=== PATIENT | female | born 1995 | race African-American/Black ===

== ENCOUNTER 2018-10-12 10:30 | Emergency (ER) | payer OTHER ==
[2018-10-12 11:22] VITALS: BP 109/56; PULSE 80; TEMP 98.1; BMI 54.3
[2018-10-12 12:02] LABS: URINE APPEARANCE SLCLOUDY; URINE BILIRUBIN NEGATIVE (<2.0 mg/dL); URINE COLOR YELLOW; URINE GLUCOSE (UA) NEGATIVE (NEGATIVE); URINE KETONE NEGATIVE (NEGATIVE); URINE LEUK ESTERASE NEGATIVE (NEGATIVE); URINE NITRITE NEGATIVE (NEGATIVE); URINE PROTEIN NEGATIVE (NEGATIVE)
[2018-10-12 12:03] LABS: HCG,QUALITATIVE URINE Negative
[2018-10-12 12:31] LABS: EPI CELLS RARE /HPF (FEW); URINE MUCUS RARE
[2018-10-12] MEDS ORDERED: RANITIDINE HCL 150 MG TABLET (FP) PO ONE (13:03)
[2018-10-12] MEDS ORDERED: MAG HYDROX/AL HYDROX/SIMETH 30 ML UNIT-DOSE CUP PO ONE (13:03)
[2018-10-12] MEDS ORDERED: SUCRALFATE 1 GM TABLET (FP) PO ONE (13:03)
--- NOTE | 2018-10-12 13:26 | PDOC ---
History of Present Illness - General History Source: Patient - History of Present Illness Timing/Duration: reports: intermittent Abdominal Pain Onset Location: reports: epigastric <Edwin Snowden - Last Filed: 10/12/18 15:21> <Racquel Clements - Last Filed: 10/12/18 16:27> - General Chief Complaint: Pain Stated Complaint: ABD PAIN Time Seen by Provider: 10/12/18 12:45 Past History - Past Medical History Asthma: Yes COPD: No - Suicide/Smoking/Psychosocial Hx Smoking History: Never smoked <Edwin Snowden - Last Filed: 10/12/18 15:21> <Racquel Clementsmagdy - Last Filed: 10/12/18 16:27> - Past Medical History Allergies/Adverse Reactions: Allergies Allergy/AdvReac Type Severity Reaction Status Date / Time azithromycin [From Zithromax] Allergy Unknown Verified 10/12/18 11:08 amoxicillin Allergy Verified 10/12/18 11:08 Home Medications: Ambulatory Orders Acetic Acid Hc [Vosol-Hc Ear Drops -] 3 drop Q6H #1 bottle 10/03/16 Mv-Mn/Iron/Folic Acid/Herb 190 [Vitamin D3 Complete Caplet] 1 each PO DAILY Famotidine [Pepcid] 20 mg PO DAILY #14 tablet 10/12/18 Mag Hydrox/Al Hydrox/Simeth [Mylanta Suspension -] 30 ml PO Q6H #1 bottle Review of Systems - Review of Systems Constitutional: No: Chills ((1 he), Fever ABD/GI: No: Blood Streaked Bowels, Constipated, Diarrhea, Nausea, Vomiting, Tarry Stools : No: Burning, Dysuria, Flank Pain, Hematuria <Edwin Snowden - Last Filed: 10/12/18 15:21> *Physical Exam - Vital Signs Last Vital Signs Temp Pulse Resp BP Pulse Ox 98.1 F 80 18 109/56 L 97 10/12/18 11:08 10/12/18 11:08 10/12/18 11:08 10/12/18 11:08 10/12/18 11:08 - Physical Exam General Appearance: Yes: Appropriately Dressed. No: Apparent Distress HEENT: positive: Normal Voice Neck: positive: Supple Respiratory/Chest: positive: Lungs Clear, Normal Breath Sounds. negative: Respiratory Distress Cardiovascular: positive: Regular Rate, S1, S2 Gastrointestinal/Abdominal: positive: Tender (over epigastrium, NT over RUQ and mcburneys) Musculoskeletal: negative: CVA Tenderness Integumentary: positive: Dry, Warm Neurologic: positive: Fully Oriented, Alert, Normal Mood/Affect <Edwin Snowden - Last Filed: 10/12/18 15:21> - Vital Signs Last Vital Signs Temp Pulse Resp BP Pulse Ox 98.1 F 80 18 109/56 L 97 10/12/18 11:08 10/12/18 11:08 10/12/18 11:08 10/12/18 11:08 10/12/18 11:08 <Racquel Clements - Last Filed: 10/12/18 16:27> Moderate Sedation - Procedure Monitoring Vital Signs: Procedure Monitoring Vital Signs Temperature 98.1 F 10/12/18 11:08 Pulse Rate 80 10/12/18 11:08 Respiratory Rate 18 10/12/18 11:08 Blood Pressure 109/56 L 10/12/18 11:08 O2 Sat by Pulse Oximetry (%) 97 10/12/18 11:08 <Edwin Snowden - Last Filed: 10/12/18 15:21> - Procedure Monitoring Vital Signs: Procedure Monitoring Vital Signs Temperature 98.1 F 10/12/18 11:08 Pulse Rate 80 10/12/18 11:08 Respiratory Rate 18 10/12/18 11:08 Blood Pressure 109/56 L 10/12/18 11:08 O2 Sat by Pulse Oximetry (%) 97 10/12/18 11:08 <Racquel Clements - Last Filed: 10/12/18 16:27> ED Treatment Course - LABORATORY CBC & Chemistry Diagram: 10/12/18 13:51 10/12/18 13:51 - ADDITIONAL ORDERS Additional order review: Laboratory Results 10/12/18 11:44 Urine Color Yellow Urine Appearance Slcloudy Urine pH 6.0 Ur Specific [place] 1.016 Urine Protein Negative Urine Glucose (UA) Negative Urine Ketones Negative Urine Blood 2+ H Urine Nitrite Negative Urine Bilirubin Negative Urine Urobilinogen 2.0 H Ur Leukocyte Esterase Negative Urine WBC (Auto) 1 Urine RBC (Auto) <1 Ur Epithelial Cells Rare Urine Mucus Rare Urine HCG, Qual Negative <Edwin Snowden - Last Filed: 10/12/18 15:21> - LABORATORY CBC & Chemistry Diagram: 10/12/18 13:51 10/12/18 13:51 - ADDITIONAL ORDERS Additional order review: Laboratory Results 10/12/18 11:44 Urine Color Yellow Urine Appearance Slcloudy Urine pH 6.0 Ur Specific [place] 1.016 Urine Protein Negative Urine Glucose (UA) Negative Urine Ketones Negative Urine Blood 2+ H Urine Nitrite Negative Urine Bilirubin Negative Urine Urobilinogen 2.0 H Ur Leukocyte Esterase Negative Urine WBC (Auto) 1 Urine RBC (Auto) <1 Ur Epithelial Cells Rare Urine Mucus Rare Urine HCG, Qual Negative 10/12/18 13:51 RBC 4.48 MCV 82.8 MCHC 31.3 L RDW 14.8 MPV 8.7 Neutrophils % 62.5 Lymphocytes % 31.1 Monocytes % 5.5 Eosinophils % 0.6 Basophils % 0.3 - Medications Given in the ED: ED Medications Discontinued Medications Generic Name Dose Route Start Last Admin Trade Name Freq PRN Reason Stop Dose Admin Al Hydroxide/Mg Hydroxide 30 ml 10/12/18 13:03 10/12/18 13:47 Mylanta Oral Suspension - PO 10/12/18 13:04 30 ml ONCE ONE Administration Ranitidine HCl 150 mg 10/12/18 13:03 10/12/18 13:47 Zantac - PO 10/12/18 13:04 150 mg ONCE ONE Administration Sucralfate 1 gm 10/12/18 13:03 10/12/18 13:47 Carafate - PO 10/12/18 13:04 1 gm NOW ONE Administration <Racquel Clements - Last Filed: 10/12/18 16:27> Medical Decision Making - Medical Decision Making 10/12/18 13:05 22-year-old female, morbidly obese, here with abdominal pain. Patient reports upper abdominal pain that started last week, unable to describe, constant with abd bloating. No nausea, vomiting, change in bowel movements, fever or chills. States she saw her PMD that very day and was told pain was probably possibly due to patient not eating as patient had had a recent dental extraction and was not eating much per patient. Patient states she resumed eating and that pain did resolve completely, but reoccurred last night. No history of gallstone or kidney stones and no dysuria or vag discharge. No history of similar pain in the past See exam Possible gastritis/GERD vs ulcer, gallstones, less likely acute olvin, appy, renal colic or uti/pyelo Stable and well jenn w/ ttp to epigastrium -GI cocktail/reassess -labs r/o other source 10/12/18 15:22 Pt labs wnl. On reassessment, pt reports feeling better and was able to tolerate po. Will dc w/ pepcid/maalox and pmd f/u <Edwin Snowden - Last Filed: 10/12/18 15:21> - Medical Decision Making The patient was seen and evaluated in conjunction with midlevel provider under my direct supervision, ancillary studies were reviewed. I agree with the plan as outlined byRyan Snowden. HPI as outlined. labs and lytes normal, LFTs and lipase normal UA unremarkable, not given GI cocktail, improved. able to jaycob PO, comfortable in chair. DC with PCP/GI followup 10/12/18 16:27 <Racquel Clements - Last Filed: 10/12/18 16:27> *DC/Admit/Observation/Transfer <Edwin Snowden - Last Filed: 10/12/18 15:21> <Racquel Clements - Last Filed: 10/12/18 16:27> Diagnosis at time of Disposition: Epigastric pain - Discharge Dispostion Disposition: HOME Condition at time of disposition: Improved - Prescriptions Prescriptions: Famotidine [Pepcid] 20 mg PO DAILY #14 tablet Mag Hydrox/Al Hydrox/Simeth [Mylanta Suspension -] 30 ml PO Q6H #1 bottle - Referrals Referrals: Kris Crouch MD [Primary Care Provider] - - Patient Instructions Printed Discharge Instructions: DI for Epigastric Pain Additional Instructions: Your epigastric pain is possibly caused by gastritis. Your labs were all normal. Take medications as directed and follow-up with your PMD if symptoms persist - Post Discharge Activity
[2018-10-12] MEDS ORDERED: SUCRALFATE 1 GM TABLET (FP) ONE (13:44)
[2018-10-12] MEDS ORDERED: RANITIDINE HCL 150 MG TABLET (FP) ONE (13:44)
[2018-10-12] MEDS ORDERED: MAG HYDROX/AL HYDROX/SIMETH 30 ML UNIT-DOSE CUP ONE (13:45)
[2018-10-12 14:12] LABS: BASO % 0.3 % (0-2.0); EOS % 0.6 % (0-4.5); HEMATOCRIT 37.1 % (32.4-45.2); HEMOGLOBIN 11.6 GM/dL (10.7-15.3); LYMPH % 31.1 % (8-40); MCH 25.9 pg (25.7-33.7); MCHC 31.3 g/dl (32.0-36.0); MEAN CELL VOLUME 82.8 fl (80-96); MEAN PLT VOLUME 8.7 fl (7.5-11.1); MONO % 5.5 % (3.8-10.2); NEUT % 62.5 % (42.8-82.8); PLATELET COUNT 324 K/MM3 (134-434); RBC 4.48 M/mm3 (3.60-5.2); RDW 14.8 % (11.6-15.6); WHITE BLOOD COUNT 12.7 K/mm3 (4.0-10.0)
[2018-10-12 14:40] LABS: ALBUMIN 3.8 g/dl (3.4-5.0); ALK PHOS 103 U/L (45-117); ANION GAP 10 MMOL/L (8-16); BILIRUBIN,TOTAL 0.4 mg/dL (0.2-1); BLOOD UREA NITROGEN 13 mg/dL (7-18); CALCIUM 9.1 mg/dL (8.5-10.1); CHLORIDE 103 mmol/L (98-107); CO2 28 mmol/L (21-32); CREATININE 0.7 mg/dL (0.55-1.3); GLUCOSE,RANDOM 80 mg/dL (74-106); POTASSIUM 3.9 mmol/L (3.5-5.1); SGOT/AST 18 U/L (15-37); SGPT/ALT 22 U/L (13-61); SODIUM 141 mmol/L (136-145); TOT PROT 7.3 g/dl (6.4-8.2)
[2018-10-12 15:04] LABS: LIPASE 117 U/L (73-393)
== END 2018-10-12 16:26 | disposition home or self-care (01) ==
LOC: JER 10:30
DX: R10.13 Epigastric pain (principal); J45.909 Unspecified asthma, uncomplicated
CPT/HCPCS: 36415; 80053; 81003; 81015; 83690; 84703; 85025; 99282-25

== ENCOUNTER 2019-05-03 20:10 | Emergency (ER) | payer OTHER ==
[2019-05-03 20:37] VITALS: BP 139/88; PULSE 77; TEMP 98.2; BMI 57.5
--- NOTE | 2019-05-03 20:40 | PDOC ---
Rapid Medical Evaluation Chief Complaint: Allergic Reaction Time Seen by Provider: 05/03/19 20:33 Medical Evaluation: Allergies Allergy/AdvReac Type Severity Reaction Status Date / Time azithromycin [From Zithromax] Allergy Unknown Verified 10/12/18 11:08 amoxicillin Allergy Verified 10/12/18 11:08 05/03/19 20:33 I have performed a brief in-person evaluation of this patient. The patient presents with a chief complaint of: acute onset of itching to feet this am that has progressed to hands and then moved up to face, lips but no tongue swelling , no breathing problems - could be seafood/ coconut oil appled to body Pertinent physical exam findings: no swelling to face / itching to all of body I have ordered the following: Benadryl 25mg PO The patient will proceed to the ED for further evaluation. 05/03/19 20:37 Discharge Disposition - Diagnosis Allergic reaction - Referrals - Patient Instructions - Post Discharge Activity
[2019-05-03] MEDS ORDERED: DEXAMETHASONE LIQUID 0.5 MG/5 ML 240 ML BULK BOTTLE PO ONE (21:20)
[2019-05-03] MEDS ORDERED: diphenhydrAMINE HCL 25 MG CAPSULE (FP) PO ONE ×2 (21:20→21:27)
--- NOTE | 2019-05-03 21:22 | PDOC ---
History of Present Illness - General Chief Complaint: Allergic Reaction Stated Complaint: ALLERGIC REACTION Time Seen by Provider: 05/03/19 20:33 - History of Present Illness Initial Comments: 05/03/19 21:20 23-year-old female without comorbidities presents for evaluation of HEENT hands and feet which started this morning Past History - Past Medical History Allergies/Adverse Reactions: Allergies Allergy/AdvReac Type Severity Reaction Status Date / Time azithromycin [From Zithromax] Allergy Unknown Verified 05/03/19 20:37 amoxicillin Allergy Verified 05/03/19 20:37 Home Medications: Ambulatory Orders Acetic Acid Hc [Vosol-Hc Ear Drops -] 3 drop Q6H #1 bottle 10/03/16 Mv-Mn/Iron/Folic Acid/Herb 190 [Vitamin D3 Complete Caplet] 1 each PO DAILY Famotidine [Pepcid] 20 mg PO DAILY #14 tablet 10/12/18 Mag Hydrox/Al Hydrox/Simeth [Mylanta Suspension -] 30 ml PO Q6H #1 bottle Asthma: Yes COPD: No - Suicide/Smoking/Psychosocial Hx Smoking History: Never smoked Have you smoked in the past 12 months: No Information on smoking cessation initiated: No Hx Alcohol Use: Yes Drug/Substance Use Hx: No Review of Systems - Review of Systems Constitutional: No: Fever Integumentary: Yes: Pruritus. No: Rash *Physical Exam - Vital Signs Last Vital Signs Temp Pulse Resp BP Pulse Ox 98.2 F 77 18 139/88 100 05/03/19 20:33 05/03/19 20:33 05/03/19 20:33 05/03/19 20:33 05/03/19 20:33 - Physical Exam Comments: 05/03/19 21:21 HEAD: NC/AT EYES: Conjuntiva clear Ears: Canals and TM's normal NOSE: No d/c THROAT: Moist mucous membrances, oral pharanx clear, uvula midline NECK: Supple without adenopathy CARDIAC: S1 S2 LUNGS: CTA Full and Equal breath sounds ABDOMEN: Soft NT ND MS: Full ROM in all joints without edema NEUROLOGIC: No gross sensory or motor deficits, NVID SKIN: Normal color and temperature no lesions or rashes Medical Decision Making - Medical Decision Making 05/03/19 21:21 Benign examination and is 23-year-old female. She states the itching has not gone away. She did see her primary care physician who prescribed her scream however she never used the cream she came to the ER for further evaluation and treatment with Benadryl and Decadron have her follow-up with her PCP 05/03/19 21:37 Improved after benadryl *DC/Admit/Observation/Transfer Diagnosis at time of Disposition: Allergic reaction - Discharge Dispostion Disposition: HOME Condition at time of disposition: Stable Decision to Admit order: No - Referrals Referrals: Kris Crouch MD [Primary Care Provider] - - Patient Instructions Additional Instructions: Return to the emergency room for worsening symptoms. Continue with home Benadryl as directed. Follow-up with your primary care physician in one to 2 days for further evaluation and treatment options. You was given a dose of a long-acting steroid in the emergency room he may continue with Benadryl at home. - Post Discharge Activity
[2019-05-03] MEDS ORDERED: DEXAMETHASONE SOD PHOSPHATE 10 MG/1 ML VIAL ONE (21:27)
== END 2019-05-03 21:37 | disposition home or self-care (01) ==
LOC: JERFT 20:10
DX: T78.40XA Allergy, unspecified, initial encounter (principal)
CPT/HCPCS: 99282-25